=== PATIENT | male | born 1965 | race African-American/Black ===

== ENCOUNTER 2018-03-07 09:53 | Emergency (ER) | payer OTHER ==
[~2018-03-07] VITALS: Ht 180.3 cm; Wt 90.7 kg
[2018-03-07 10:04] VITALS: BP 136/84
[2018-03-07 11:10] VITALS: BP 132/90
== END 2018-03-07 11:10 | disposition home or self-care (01) ==
LOC: MED 09:53
DX: M25.561 Pain in right knee (principal); Z86.718 Personal history of other venous thrombosis and embolism
CPT/HCPCS: 99283

== ENCOUNTER 2018-11-17 09:32 | Emergency (ER) | payer OTHER ==
[~2018-11-17] VITALS: Ht 180.3 cm; Wt 90.7 kg
[2018-11-17 09:44] VITALS: BP 145/98
--- NOTE | 2018-11-17 09:50 | NUR ---
PT AMBULATED TO ED BED 04
--- NOTE | 2018-11-17 10:11 | NUR ---
Dr. Hooper evaluating patient at bedside.
--- NOTE | 2018-11-17 10:17 | NUR ---
quality control engineering technician at bedside.
[2018-11-17 11:38] VITALS: BP 145/98
--- NOTE | 2018-11-17 11:38 | NUR ---
Patient discharged with v/s stable. Written and verbal after care instructions given and explained. Patient alert, oriented and verbalized understanding of instructions. Ambulatory with steady gait. All questions addressed prior to discharge. ID band removed. Patient advised to follow up with PMD. Rx of ALEVE given. Patient educated on indication of medication including possible reaction and side effects. Opportunity to ask questions provided and answered.
== END 2018-11-17 11:38 | disposition home or self-care (01) ==
LOC: MED 09:32
DX: S46.911A Strain of unspecified muscle, fascia and tendon at shoulder and upper arm level, right arm, initial encounter (principal); X58.XXXA Exposure to other specified factors, initial encounter; Y93.89 Activity, other specified; Y92.89 Other specified places as the place of occurrence of the external cause; Y99.8 Other external cause status
CPT/HCPCS: 73030; 99283; Q0092